=== PATIENT | male | born 2005 | race Caucasian/White ===

== ENCOUNTER 2025-01-31 20:33 | Emergency (ER) | payer BC ==
--- NOTE | 2025-01-31 20:55 | ED ---
Nausea/Vomiting/Diarrhea HPI - General Chief complaint: Nausea/Vomiting/Diarrhea Stated complaint: NVD Time Seen by Provider: 01/31/25 20:53 Source: patient, family, RN notes reviewed Mode of arrival: ambulatory Limitations: no limitations - History of Present Illness Initial comments: 19-year-old male presenting to the ER for evaluation of nausea, vomiting, diarrhea. Patient states around 6 PM this evening he started to have persistent bilious vomiting and diarrhea. He states his diarrhea is "water". He denies any hematochezia, melena, hematic emesis or coffee-ground emesis. Patient also is reporting consistent suprapubic abdominal discomfort. He denies any urinary complaints. He has not taken anything for symptoms at this time. He admits to chills but denies any known fevers. Patient has no medical history of ulcerative colitis or Crohn's disease. Denies marijuana use. No significant past medical history. Patient has no other complaints at this time. - Related Data Allergies Allergy/AdvReac Type Severity Reaction Status Date / Time No Known Allergies Allergy Verified 01/31/25 20:37 Review of Systems ROS Statement: Those systems with pertinent positive or pertinent negative responses have been documented in the HPI. ROS Other: All systems not noted in ROS Statement are negative. Past Medical History Past Medical History: No Reported History History of Any Multi-Drug Resistant Organisms: None Reported Past Surgical History: Appendectomy Past Psychological History: No Psychological Hx Reported Smoking Status: Current every day smoker Past Alcohol Use History: Rare Past Drug Use History: None Reported General Exam Limitations: no limitations General appearance: alert, in no apparent distress, other (Patient laying in position) Respiratory exam: Present: normal lung sounds bilaterally. Absent: respiratory distress, wheezes, rales, rhonchi, stridor Cardiovascular Exam: Present: regular rate, normal rhythm, normal heart sounds. Absent: systolic murmur, diastolic murmur, rubs, gallop, clicks GI/Abdominal exam: Present: soft, normal bowel sounds. Absent: distended, tenderness, guarding, rebound, rigid Extremities exam: Present: normal inspection, full ROM, normal capillary refill. Absent: tenderness, pedal edema, joint swelling, calf tenderness Neurological exam: Present: alert, oriented X3, CN II-XII intact Skin exam: Present: warm, dry, intact, normal color. Absent: rash Course Vital Signs 01/31/25 01/31/25 01/31/25 20:34 22:52 23:30 Temperature 98.6 F 99.7 F H Pulse Rate 105 H 98 93 Respiratory 20 17 16 Rate Blood Pressure 104/78 97/60 95/58 O2 Sat by Pulse 97 95 100 Oximetry - Reevaluation(s) Reevaluation #1: 01/31/25 22:52 Patient reevaluated. No signs of acute distress. Patient reporting improvement of symptoms. Patient requesting water. Medical Decision Making - Medical Decision Making Was pt. sent in by a medical professional or institution (, PA, PATTERNMAKER PLASTER, urgent care, hospital, or care home...) When possible be specific @ -No Did you speak to anyone other than the patient for history (EMS, parent, family, police, friend...)? What history was obtained from this source @ -Patient's grandmother, at bedside, aiding in HPI and past medical history. Did you review nursing and triage notes (agree or disagree)? Why? @ -I reviewed and agree with nursing and triage notes Were old charts reviewed (outside hosp., previous admission, EMS record, old EKG, old radiological studies, urgent care reports/EKG's, care home records)? Report findings @ -No old charts were reviewed Differential Diagnosis (chest pain, altered mental status, abdominal pain women, abdominal pain men, vaginal bleeding, weakness, fever, dyspnea, syncope, headache, dizziness, GI bleed, back pain, seizure, CVA, palpatations, mental health, musculoskeletal)? @ -Gastroenteritis, viral illness, pancreatitis, appendicitis, C. difficile, UTI... This list is not meant to be all-inclusive EKG interpreted by me (3pts min.). @ -None done X-rays interpreted by me (1pt min.). @ -None done CT interpreted by me (1pt min.). @ -None done U/S interpreted by me (1pt. min.). @ -None done What testing was considered but not performed or refused? (CT, X-rays, U/S, labs)? Why? @ -Imaging considered but not performed as there is no focal abdominal tenderness, patient is agreeable. What meds were considered but not given or refused? Why? @ -None Did you discuss the management of the patient with other professionals (professionals i.e. , PA, PATTERNMAKER PLASTER, lab, RT, psych nurse, marriage and family social worker, instrument and electrical technician, teacher, combatant diver officer, special education case manager)? Give summary @ -No Was smoking cessation discussed for >3mins.? @ -No Was critical care preformed (if so, how long)? @ -No Were there social determinants of health that impacted care today? How? (Homelessness, low income, unemployed, alcoholism, drug addiction, transpor tation, low edu. Level, literacy, decrease access to med. care, group home, rehab)? @ -No Was there de-escalation of care discussed even if they declined (Discuss DNR or withdrawal of care, Hospice)? DNR status @ -No What co-morbidities impacted this encounter? (DM, HTN, Smoking, COPD, CAD, Cancer, CVA, ARF, Chemo, Hep., AIDS, mental health diagnosis, sleep apnea, morbid obesity)? @ -None Was patient admitted / discharged? Hospital course, mention meds given and route, prescriptions, significant lab abnormalities, going to OR and other pertinent info. @ -Discharge. 19-year-old male presented the ER for evaluation of nausea, vomiting and diarrhea. Upon rooming, history and physical exam completed. Vitals within acceptable limits. Patient had no signs of acute distress but is laying in the position. No focal abdominal tenderness. Laboratory studies unimpressive. Urine with 4+ ketones likely due to dehydration for which patient received IV fluids. UDS negative. Viral swabs negative. Patient given IV fluids, Zofran and Toradol in the emergency department upon reevaluation, patient laying on stretcher no signs of acute distress. Results discussed with patient, all questions answered. Patient requesting water. Patient was able to tolerate oral intake and is stable for discharge at this time. Patient to be discharged with the Zofran starter pack. Symptoms possibly viral in nature. Strict return parameters discussed. Patient discharged in stable condition with follow-up to PCP. Patient verbally expressed understanding agreement with care plan. Case discussed with ED attending, Dr. Clemons. Undiagnosed new problem with uncertain prognosis? @ -No Drug Therapy requiring intensive monitoring for toxicity (Heparin, Nitro, Insulin, Cardizem)? @ -No Were any procedures done? @ -No Diagnosis/symptom? @ -Nausea, vomiting and diarrhea Acute, or Chronic, or Acute on Chronic? @ -Acute Uncomplicated (without systemic symptoms) or Complicated (systemic symptoms)? @ -Uncomplicated Side effects of treatment? @ -No Exacerbation, Progression, or Severe Exacerbation? @ -No Poses a threat to life or bodily function? How? (Chest pain, [place], [place], pneumonia, PE, COPD, DKA, ARF, appy, cholecystitis, CVA, Diverticulitis, Homicidal, Suicidal, threat to staff... and all critical care pts) @ -No - Lab Data Result diagrams: 01/31/25 21:02 01/31/25 21: Lab Results 01/31/25 01/31/25 01/31/25 Range/Units 21: 21: 21:02 WBC 8.3 (4.0-11.0) k/uL RBC 5.34 (4.30-5.90) m/uL Hgb 16.6 (13.0-17.5) gm/dL Hct 49.4 (39.0-53.0) % MCV 92.4 (80.0-100.0) fL MCH 31.0 (25.0-35.0) pg MCHC 33.6 (31.0-37.0) g/dL RDW 12.5 (11.5-15.5) % Plt Count 211 (150-450) k/uL MPV 7.3 Neutrophils % 85 % Lymphocytes % 7 % Monocytes % 6 % Eosinophils % 1 % Basophils % 0 % Neutrophils # 7.0 (1.3-7.7) k/uL Lymphocytes # 0.6 L (1.0-4.8) k/uL Monocytes # 0.5 (0-1.0) k/uL Eosinophils # 0.1 (0-0.7) k/uL Basophils # 0.0 (0-0.2) k/uL Sodium 136 L (137-145) mmol/L Potassium 3.8 (3.5-5.1) mmol/L Chloride 103 (98-107) mmol/L Carbon Dioxide 15 L (22-30) mmol/L Anion Gap 18 mmol/L BUN 20 (9-20) mg/dL Creatinine 0.76 (0.66-1.25) mg/dL Est GFR (CKD-EPI)AfAm >90 (>60 ml/min/1.73 sqM) Est GFR (CKD-EPI)NonAf >90 (>60 ml/min/1.73 sqM) Glucose 107 H (74-99) mg/dL Plasma Lactic Acid Kevin 1.9 (0.7-2.0) mmol/L Calcium 10.4 H (8.4-10.2) mg/dL Total Bilirubin 0.9 (0.2-1.3) mg/dL AST 31 (17-59) U/L ALT 19 (4-49) U/L Alkaline Phosphatase 80 (38-126) U/L Total Protein 8.1 (6.3-8.2) g/dL Albumin 5.3 H (3.5-5.0) g/dL Amylase 65 (30-110) U/L Lipase 80 (23-300) U/L Urine Color Urine Appearance (Clear) Urine pH (5.0-8.0) Ur Specific [place] (1.001-1.035) Urine Protein (Negative) Urine Glucose (UA) (Negative) Urine Ketones (Negative) Urine Blood (Negative) Urine Nitrite (Negative) Urine Bilirubin (Negative) Urine Urobilinogen (<2.0) mg/dL Ur Leukocyte Esterase (Negative) Urine RBC (0-5) /hpf Urine WBC (0-5) /hpf Ur Squamous Epith Cells (0-4) /hpf Amorphous Sediment (None) /hpf Hyaline Casts (0-2) /lpf Urine Mucus (None) /hpf Urine Opiates Screen (NotDetected) Ur Oxycodone Screen (NotDetected) Urine Methadone Screen (NotDetected) Ur Barbiturates Screen (NotDetected) U Tricyclic Antidepress (NotDetected) Ur Phencyclidine Scrn (NotDetected) Ur Amphetamines Screen (NotDetected) U Methamphetamines Scrn (NotDetected) U Benzodiazepines Scrn (NotDetected) Urine Cocaine Screen (NotDetected) U Marijuana (THC) Screen (NotDetected) Influenza Type A (PCR) (Not Detectd) Influenza Type B (PCR) (Not Detectd) RSV (PCR) (Not Detectd) SARS-CoV-2 (PCR) (Not Detectd) 01/31/25 01/31/25 Range/Units 21:02 22:05 WBC (4.0-11.0) k/uL RBC (4.30-5.90) m/uL Hgb (13.0-17.5) gm/dL Hct (39.0-53.0) % MCV (80.0-100.0) fL MCH (25.0-35.0) pg MCHC (31.0-37.0) g/dL RDW (11.5-15.5) % Plt Count (150-450) k/uL MPV Neutrophils % % Lymphocytes % % Monocytes % % Eosinophils % % Basophils % % Neutrophils # (1.3-7.7) k/uL Lymphocytes # (1.0-4.8) k/uL Monocytes # (0-1.0) k/uL Eosinophils # (0-0.7) k/uL Basophils # (0-0.2) k/uL Sodium (137-145) mmol/L Potassium (3.5-5.1) mmol/L Chloride (98-107) mmol/L Carbon Dioxide (22-30) mmol/L Anion Gap mmol/L BUN (9-20) mg/dL Creatinine (0.66-1.25) mg/dL Est GFR (CKD-EPI)AfAm (>60 ml/min/1.73 sqM) Est GFR (CKD-EPI)NonAf (>60 ml/min/1.73 sqM) Glucose (74-99) mg/dL Plasma Lactic Acid Kevin (0.7-2.0) mmol/L Calcium (8.4-10.2) mg/dL Total Bilirubin (0.2-1.3) mg/dL AST (17-59) U/L ALT (4-49) U/L Alkaline Phosphatase (38-126) U/L Total Protein (6.3-8.2) g/dL Albumin (3.5-5.0) g/dL Amylase (30-110) U/L Lipase (23-300) U/L Urine Color Yellow Urine Appearance Cloudy (Clear) Urine pH 6.0 (5.0-8.0) Ur Specific [place] 1.035 (1.001-1.035) Urine Protein 1+ H (Negative) Urine Glucose (UA) Negative (Negative) Urine Ketones 4+ H (Negative) Urine Blood Small H (Negative) Urine Nitrite Negative (Negative) Urine Bilirubin Negative (Negative) Urine Urobilinogen 2.0 (<2.0) mg/dL Ur Leukocyte Esterase Negative (Negative) Urine RBC 8 H (0-5) /hpf Urine WBC 2 (0-5) /hpf Ur Squamous Epith Cells <1 (0-4) /hpf Amorphous Sediment Rare H (None) /hpf Hyaline Casts 9 H (0-2) /lpf Urine Mucus Many H (None) /hpf Urine Opiates Screen Not Detected (NotDetected) Ur Oxycodone Screen Not Detected (NotDetected) Urine Methadone Screen Not Detected (NotDetected) Ur Barbiturates Screen Not Detected (NotDetected) U Tricyclic Antidepress Not Detected (NotDetected) Ur Phencyclidine Scrn Not Detected (NotDetected) Ur Amphetamines Screen Not Detected (NotDetected) U Methamphetamines Scrn Not Detected (NotDetected) U Benzodiazepines Scrn Not Detected (NotDetected) Urine Cocaine Screen Not Detected (NotDetected) U Marijuana (THC) Screen Not Detected (NotDetected) Influenza Type A (PCR) Not Detected (Not Detectd) Influenza Type B (PCR) Not Detected (Not Detectd) RSV (PCR) Not Detected (Not Detectd) SARS-CoV-2 (PCR) Not Detected (Not Detectd) Disposition Clinical Impression: Nausea vomiting and diarrhea Disposition: HOME SELF-CARE Condition: Stable Instructions (If sedation given, give patient instructions): Acute Nausea and Vomiting (ED), Acute Diarrhea (ED) Additional Instructions: Be sure to drink plenty of fluids. You may take Zofran every 8 hours for nausea. I recommend [id number] ibuprofen and Tylenol for pain control outpatient. Follow-up with PCP. Return to the ER for any new or worsening concerns. Is patient prescribed a controlled substance at d/c from ED?: No Referrals: None,Stated [Primary Care Provider] - 1-2 days Forms: Area PCPs Time of Disposition: 23:13
[2025-01-31] MEDS: SODIUM CHLORIDE 0.9% 1,000 ML IV ONE (21:08)
[2025-01-31] MEDS: KETOROLAC 15 MG/ML 1 ML VIAL IVP STA (21:09)
[2025-01-31] MEDS: ONDANSETRON 4 MG/2 ML VIAL IVP STA (21:09)
[2025-01-31 21:31] LABS: Basophils % (A) 0 %; Eosinophils # (A) 0.1 k/uL (0-0.7); Eosinophils % (A) 1 %; HCT 49.4 % (39.0-53.0); HGB 16.6 gm/dL (13.0-17.5); Lymphocytes # (A) 0.6 k/uL (1.0-4.8); Lymphocytes % (A) 7 %; MCHC 33.6 g/dL (31.0-37.0); MCV 92.4 fL (80.0-100.0); Mean Platelet Volume 7.3; Monocytes # (A) 0.5 k/uL (0-1.0); Monocytes % (A) 6 %; Neutrophils % (A) 85 %; Platelet Count 211 k/uL (150-450); RBC 5.34 m/uL (4.30-5.90); RDW 12.5 % (11.5-15.5); WBC 8.3 k/uL (4.0-11.0)
[2025-01-31 21:36] LABS: ALT 19 U/L (4-49); AST 31 U/L (17-59); African American GFR (CKD) >90 (>60 ml/min/1.73 sqM); Albumin 5.3 g/dL (3.5-5.0); Alkaline Phosphatase 80 U/L (38-126); Amylase 65 U/L (30-110); Anion Gap 18 mmol/L; Blood Urea Nitrogen 20 mg/dL (9-20); Calcium 10.4 mg/dL (8.4-10.2); Carbon Dioxide 15 mmol/L (22-30); Chloride 103 mmol/L (98-107); Glucose 107 mg/dL (74-99); Lipase 80 U/L (23-300); Non-African American GFR(CKD) >90 (>60 ml/min/1.73 sqM); Potassium 3.8 mmol/L (3.5-5.1); Sodium 136 mmol/L (137-145); Total Bilirubin 0.9 mg/dL (0.2-1.3); Total Protein 8.1 g/dL (6.3-8.2)
[2025-01-31 22:20] LABS: Influenza A Not Detected (Not Detectd); Influenza B Not Detected (Not Detectd); RSV Not Detected (Not Detectd)
[2025-01-31 22:38] LABS: Amorphous Sediment,Urine Rare /hpf; Appearance,Urine Cloudy (Clear); Bilirubin,Urine Negative (Negative); Blood,Urine Small (Negative); Color,Urine Yellow; Glucose,Urine (UA) Negative (Negative); Hyaline Casts,Urine 9 /lpf (0-2); Ketones,Urine 4+ (Negative); Leukocyte Esterase,Urine Negative (Negative); Mucus,Urine Many /hpf; Nitrite,Urine Negative (Negative); Protein,Urine 1+ (Negative); RBC,Urine 8 /hpf (0-5); Specific Gravity,Urine 1.035 (1.001-1.035); Squamous Epithelial Cell,Urine <1 /hpf (0-4); WBC,Urine 2 /hpf (0-5)
[2025-01-31 22:45] LABS: Amphetamine Screen,Urine Not Detected (NotDetected); Barbiturate Screen,Urine Not Detected (NotDetected); Benzodiazepines Screen,Urine Not Detected (NotDetected); Cocaine Screen,Urine Not Detected (NotDetected); Methadone Screen, Urine Not Detected (NotDetected); Opiate Screen,Urine Not Detected (NotDetected); Oxycodone Screen, Urine Not Detected (NotDetected); Phencyclidine Screen,Urine Not Detected (NotDetected); Tricyclic Antidepressant,Urine Not Detected (NotDetected); Urn Cannabinoid Scrn Not Detected (NotDetected)
[2025-01-31 22:53] VITALS: TEMP 99.7
[2025-01-31] MEDS: ONDANSETRON 4 MG ODT STARTER PACK 2 TAB BTL PO STA (23:30)
[2025-01-31 23:37] VITALS: BP 95/58; PULSE 93; RESP 16
== END 2025-01-31 23:37 | disposition home or self-care (01) ==
LOC: EC 20:33
DX: R11.2 Nausea with vomiting, unspecified (principal); R19.7 Diarrhea, unspecified; F17.200 Nicotine dependence, unspecified, uncomplicated
CPT/HCPCS: 36415; 80053; 82150; 83605; 83690; 85025; 81001; 80306; 87636; 99284; 96374; 96375; 96361; J2405; J1885; S0119

== ENCOUNTER 2025-05-23 22:01 | Inpatient (IN) | payer BC ==
[2025-05-23 22:13] LABS: Glucose,Whole Blood 100 mg/dL (70-110)
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
[2025-05-23 22:32] LABS: Basophils # (A) 0.03 10*3/uL (0.00-0.10); Basophils % (A) 0.4 %; Eosinophils # (A) 0.02 10*3/uL (0.04-0.35); Eosinophils % (A) 0.3 %; HCT 36.4 % (39.6-50.0); HGB 12.8 g/dL (13.0-17.0); Lymphocytes # (A) 1.23 10*3/uL (0.90-5.00); Lymphocytes % (A) 17.2 %; MCH 31.6 pg (27.0-32.0); MCHC 35.2 g/dL (32.0-37.0); MCV 89.9 fL (80.0-97.0); Monocytes # (A) 0.48 10*3/uL (0.20-1.00); Monocytes % (A) 6.7 %; Neutrophils # (A) 5.35 10*3/uL (1.80-7.70); Neutrophils % (A) 74.7 %; Platelet Count 199 10*3/uL (140-440); RBC 4.05 10*6/uL (4.40-5.60); RDW 12.8 % (11.5-14.5); WBC 7.16 10*3/uL (4.50-10.00)
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
[2025-05-23 22:45] LABS: ALT 26 U/L (4-49); AST 54 U/L (17-59); African American GFR (CKD) >90 (>60 ml/min/1.73 sqM); Albumin 4.6 g/dL (3.5-5.0); Alkaline Phosphatase 71 U/L (38-126); Anion Gap 12 mmol/L; Blood Urea Nitrogen 13 mg/dL (9-20); Calcium 9.0 mg/dL (8.4-10.2); Carbon Dioxide 22 mmol/L (22-30); Chloride 107 mmol/L (98-107); Glucose 98 mg/dL (74-99); Non-African American GFR(CKD) >90 (>60 ml/min/1.73 sqM); Potassium 3.8 mmol/L (3.5-5.1); Sodium 141 mmol/L (137-145); Total Protein 6.8 g/dL (6.3-8.2)
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
[2025-05-23 22:48] LABS: INR 1.1 (<1.2); Partial Thromboplastin Time 24.0 sec (22.0-30.0); Prothrombin Time 11.7 sec (10.0-12.5)
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
[2025-05-23] MEDS: SODIUM CHLORIDE 0.9% 1,000 ML IV STA (22:50)
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
[2025-05-23] MEDS: HYDROmorphone 0.5 MG/0.5 ML SYRINGE IVP STA (22:54)
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
[2025-05-23] MEDS ORDERED: HYDROmorphone 0.5 MG/0.5 ML SYRINGE IVP PRN (23:08)
[2025-05-23] MEDS ORDERED: NALOXONE 0.4 MG/ML 1 ML VIAL IV PRN ×2 (23:08)
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
[2025-05-24] MEDS: DIPH,PERTUS(ACELL)TETVAC-LF 0.5 ML VIAL IM ONE (00:13)
[2025-05-24] MEDS: DEXTROSE 5%-0.45% NACL 1,000 ML IV SCH (00:13)
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
[2025-05-24 00:37] LABS: Bilirubin,Urine Negative (Negative); Blood,Urine Small (Negative); Color,Urine Colorless; Glucose,Urine (UA) Negative (Negative); Ketones,Urine Trace (Negative); Leukocyte Esterase,Urine Negative (Negative); Mucus,Urine Rare /hpf; Nitrite,Urine Negative (Negative); PH, Urine 5.5 (5.0-8.0); Protein,Urine Negative (Negative); RBC,Urine 3 /hpf (0-5); Specific Gravity,Urine 1.041 (1.001-1.035); Urobilinogen,Urine <2.0 mg/dL (<2.0); WBC,Urine <1 /hpf (0-5)
[2025-05-24 00:52] LABS: Barbiturate Screen,Urine Not Detected (NotDetected); Benzodiazepines Screen,Urine Not Detected (NotDetected); Opiate Screen,Urine Not Detected (NotDetected); Oxycodone Screen, Urine Not Detected (NotDetected); Phencyclidine Screen,Urine Not Detected (NotDetected); Tricyclic Antidepressant,Urine Not Detected (NotDetected); Urn Cannabinoid Scrn Not Detected (NotDetected)
[2025-05-24] MEDS: HYDROmorphone 1 MG/ML 1 ML SYRINGE IVP PRN (02:37)
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
[2025-05-24 09:05] LABS: Basophils # (A) 0.02 10*3/uL (0.00-0.10); Basophils % (A) 0.3 %; Eosinophils # (A) 0.02 10*3/uL (0.04-0.35); Eosinophils % (A) 0.3 %; HCT 34.3 % (39.6-50.0); HGB 11.9 g/dL (13.0-17.0); Lymphocytes # (A) 1.15 10*3/uL (0.90-5.00); Lymphocytes % (A) 15.2 %; MCH 31.4 pg (27.0-32.0); MCHC 34.7 g/dL (32.0-37.0); MCV 90.5 fL (80.0-97.0); Monocytes # (A) 0.99 10*3/uL (0.20-1.00); Monocytes % (A) 13.1 %; Neutrophils # (A) 5.35 10*3/uL (1.80-7.70); Neutrophils % (A) 70.7 %; Platelet Count 181 10*3/uL (140-440); RBC 3.79 10*6/uL (4.40-5.60); RDW 13.1 % (11.5-14.5); WBC 7.56 10*3/uL (4.50-10.00)
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
--- NOTE | 2025-05-24 16:41 | P.PN ---
Progress Note - Text Was called to see patient by nursing regarding blood saturating the patient's left splint. The splint was taken down. There was a small 3-mm open wound over the lateral aspect of the elbow. There was a small amount of bleeding, but no fat droplets concerning for an open fracture. There was ecchymosis and significant swelling over the posterior aspect of the elbow and olecranon. A sterile dressing consisting of adaptic, 4x4 and an ABD was applied over the elbow followed by Kerlix, webril and a posterior plaster elbow splint with stir rups. An ALFONSO wrap was then applied. The patient's fracture DOES NOT APPEAR to be open and the patient has TOO MUCH SWELLING to undergo surgery at this time. He is ok to discharge from an orthopaedic standpoint to follow-up with one of our UE specialists to discuss definitive treatment.
[2025-05-24] MEDS: ONDANSETRON 4 MG/2 ML VIAL IVP PRN (16:56)
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
[2025-05-24] MEDS: ACETAMINOPHEN TAB 500 MG TAB PO SCH (19:23)
[2025-05-24] MEDS: IBUPROFEN 600 MG TAB PO SCH (19:24)
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
--- NOTE | 2025-05-25 19:00 | P.PN ---
Progress Note - Text Progress Note Date: 05/25/25 Patient had 2 separate EKGs with 2 different findings including septal infarct of undetermined age in a patient in his 20s. At this time, pending results of echo and clearance from cardiology for discharge.
[2025-05-26 05:00] VITALS: PULSE 54; RESP 16
--- NOTE | 2025-05-26 07:29 | CA ---
Transthoracic Echo Report Name: Spencer Hanson Age: 19 Gender: M : 2005 Exam Date: 05/25/2025 14:37 Exam Location: [facility] Ht (in): 75 Wt (lb): 150 Ordering Physician: Juan F Clemons DO Attending/Referring Phys: [id number], Kaci Forest Scientist Gloria Antonio, ALEXANDER Procedure CPT: Indications: trauma Cardiac Hx: Technical Quality: Good Contrast 1: Total Dose (mL): Contrast 2: Total Dose (mL): MEASUREMENTS (Male / Female) Normal Values 2D ECHO LV Diastolic Diameter PLAX 4.6 cm 4.2 - 5.9 / 3.9 - 5.3 cm LV Systolic Diameter PLAX 3.2 cm IVS Diastolic Thickness 0.9 cm 0.6 - 1.0 / 0.6 - 0.9 cm LVPW Diastolic Thickness 0.8 cm 0.6 - 1.0 / 0.6 - 0.9 cm LV Relative Wall Thickness 0.4 RV Internal Dim ED PLAX 2.8 cm LVOT Diameter 2.3 cm Aortic Root Diameter 2.9 cm LA Systolic Diameter LX 2.4 cm 3.0 - 4.0 / 2.7 - 3.8 cm LV Diastolic Volume MOD 4C 118.9 cm??? LV Systolic Volume MOD 4C 49.8 cm??? LV Ejection Fraction MOD 4C 58.1 % LV Diastolic Length 4C 9.8 cm LV Systolic Length 4C 8.0 cm LV Diastolic Volume MOD 2C 137.9 cm??? LV Systolic Volume MOD 2C 54.2 cm??? LV Ejection Fraction MOD 2C 60.7 % LV Diastolic Length 2C 9.8 cm LV Systolic Length 2C 7.9 cm DOPPLER Mitral E Point Velocity 88.0 cm/s Mitral A Point Velocity 35.2 cm/s Mitral E to A Ratio 2.5 MV Deceleration Time 280.6 ms MV E' Velocity 11.4 cm/s Mitral E to MV E' Ratio 7.7 FINDINGS Left Ventricle Left ventricular ejection fraction is estimated at 60%. Normal left ventricular systolic function with no obvious regional wall motion abnormalities. Left ventricular cavity size normal. Left ventricular wall thickness normal. Right Ventricle Normal right ventricular size and function. Unable to estimate the right ventricular systolic pressure. Right Atrium Normal right atrial size. Left Atrium Normal left atrial size. Mitral Valve Slight Prolapse of the anterior mitral valve leaflet. . No mitral stenosis. Trace mitral regurgitation. Aortic Valve Trileaflet aortic valve. No aortic valve stenosis or regurgitation. Tricuspid Valve Structurally normal tricuspid valve. No tricuspid stenosis. Trace tricuspid regurgitation. Pulmonic Valve Pulmonic valve not well visualized. Pericardium No pericardial effusion. Aorta Aortic annulus normal. CONCLUSIONS Normal LV function No pericardial effusion Previewed by: Dr. Kyel Perez MD (Electronically Signed) Final Date: 26 May 2025 07:28
[2025-05-26 09:36] VITALS: BP 115/61; TEMP 98
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
[2025-05-26 10:45] VITALS: BMI 17.9
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
== END 2025-05-26 12:47 | disposition home or self-care (01) | DRG 964 ==
LOC: EC 22:01 → 3SCARD 23:09
PROVIDERS: ADMIT Surgery Plastic and Reconstructive Surgery; ATTEND Surgery Plastic and Reconstructive Surgery
DX: S22.42XA Multiple fractures of ribs, left side, initial encounter for closed fracture (principal); F11.20 Opioid dependence, uncomplicated; S06.9X9A Unspecified intracranial injury with loss of consciousness of unspecified duration, initial encounter; S27.321A Contusion of lung, unilateral, initial encounter; K66.8 Other specified disorders of peritoneum; S42.022A Displaced fracture of shaft of left clavicle, initial encounter for closed fracture; S52.022A Displaced fracture of olecranon process without intraarticular extension of left ulna, initial encounter for closed fracture; F10.129 Alcohol abuse with intoxication, unspecified; F17.210 Nicotine dependence, cigarettes, uncomplicated; Y90.5 Blood alcohol level of 100-119 mg/100 ml; V29.99XA Rider (driver) (passenger) of other motorcycle injured in unspecified traffic accident, initial encounter; Y92.410 Unspecified street and highway as the place of occurrence of the external cause; Z71.6 Tobacco abuse counseling
CPT/HCPCS: 36415; 70450; 71045; 71260; 72125; 72170; 74177; 80053; 80306; 80320; 81001; 83605; 84484; 85025; 85610; 85730; 86850; 86900; 86901; 90471; 90715; 93005; 93306; 96361; 96365; 96375; 96376; 99291

== ENCOUNTER → 2025-06-04 | Outpatient (CLI) | payer BC ==
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
== END | disposition home or self-care (01) ==
LOC: RADCTMAIN 11:06
PROVIDERS: ATTEND Orthopaedic Surgery Orthopaedic Trauma
DX: S52.022A Displaced fracture of olecranon process without intraarticular extension of left ulna, initial encounter for closed fracture (principal); S42.022A Displaced fracture of shaft of left clavicle, initial encounter for closed fracture; S22.32XA Fracture of one rib, left side, initial encounter for closed fracture; X58.XXXA Exposure to other specified factors, initial encounter

== ENCOUNTER → 2025-06-05 | Outpatient (CLI) | payer BC ==
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
== END | disposition home or self-care (01) ==
LOC: RADCTMAIN 16:40
PROVIDERS: ATTEND Orthopaedic Surgery Orthopaedic Trauma
DX: S52.032A Displaced fracture of olecranon process with intraarticular extension of left ulna, initial encounter for closed fracture (principal)